=== PATIENT | male | born 1960 | race Caucasian/White ===

== ENCOUNTER 2017-02-15 08:49 | Emergency (ER) | payer OTHER ==
[~2017-02-15] VITALS: Ht 149.9 cm; Wt 56.7 kg
[~2017-02-15 08:49] MED LIST: ACETAMINOPHEN-1 EAC1 PO; ALENDRONATE; AMOXICILLIN 50500 M1 PO; APAP500 PO; ATORVASTATIN CA40 MG PO; CALCIUM; CALCIUM 500 +1 EAC5 PO; CALCIUM 500 WI1 EAC3 PO; CALCIUM OYSTER500 MG PO; CARISOPRODOL 3350 MG PO; CYMBALTA30 MG; CYMBALTA60 MG PO; ELAVIL PO; FOSAMAX 70 MG T70 M1; FOSAMAX 70 MG T70 M1 PO; FOSAMAX 70 MG T70 MG PO; HYDROCODON-ACE1 EAC5 PO; HYDROCODONE-AP1 EAC6 PO; KLOR-CON 1010 MEQ PO; LIPITOR; LIPITOR 40 MG T40 M1; LIPITOR40 MG; LIPITOR40 MG PO; MELATONIN3 MG PO; MOBIC7.5 MG PO; MS CONTIN 30 MG30 M1 PO; MS CONTIN30 MG; MS CONTIN30 MG PO; NAPROSYN500 MG PO; NITROGLYCERIN0.4 MG SUBLING; NOHOMEMEDICATIONS; NORCO 10-325 T1 EACH PO; NORCO 5-325 TA1 EAC1 PO; NORCO 5-325 TA1 EACH PO; OXYCODON-ACETA1 EAC1 PO; OXYCODONE HCL15 MG PO; OXYCONTIN CR 2020 MG PO; OXYCONTIN20 M1 PO; PERCOCET; PERCOCET 10-321 EACH; PERCOCET 10-321 EACH PO; PERCOCET 10-651 EACH PO; PERCOCET 5-3251 EACH; PERCOCET 5-3251 EACH PO; PERCOCET 7.5-31 EACH; PERCOCET 7.5-31 EACH PO; PERCOCET 7.5-51 EACH; PERCOCET PO; ROXICODONE15 M1 PO; TRAMADOL 50 MG50 MG PO; ULTRAM 50MG TAB50 MG PO; VALIUM5 MG; VICODIN 5-5001 EACH PO; VICODIN ES TAB1 EACH PO; VICODIN PO
[2017-02-15 08:58] VITALS: BP 141/89
[2017-02-15] MEDS ORDERED: PERCOCET 5-3251 EACH PO (09:50)
== END 2017-02-15 10:01 | disposition home or self-care (01) ==
LOC: ER 08:49
DX: R07.81 Pleurodynia (principal); Q78.0 Osteogenesis imperfecta; M81.0 Age-related osteoporosis without current pathological fracture; M41.9 Scoliosis, unspecified; E78.00 Pure hypercholesterolemia, unspecified; F17.210 Nicotine dependence, cigarettes, uncomplicated; I48.91 Unspecified atrial fibrillation; Z88.6 Allergy status to analgesic agent; Z88.8 Allergy status to other drugs, medicaments and biological substances

== ENCOUNTER 2017-02-21 08:06 | Emergency (ER) | payer OTHER ==
[~2017-02-21] VITALS: Ht 149.9 cm; Wt 56.7 kg
[2017-02-21] MEDS ORDERED: PERCOCET 5-3251 EACH PO (09:09)
[2017-02-21 09:30] VITALS: BP 142/71
[2017-02-25] MEDS ORDERED: PERCOCET 5-3251 EACH PO (14:33)
== END 2017-02-21 09:31 | disposition home or self-care (01) ==
LOC: ER 08:06
DX: S22.41XA Multiple fractures of ribs, right side, initial encounter for closed fracture (principal); E78.5 Hyperlipidemia, unspecified; G89.29 Other chronic pain; I48.91 Unspecified atrial fibrillation; Z88.6 Allergy status to analgesic agent; Z88.8 Allergy status to other drugs, medicaments and biological substances; F17.210 Nicotine dependence, cigarettes, uncomplicated; W01.0XXA Fall on same level from slipping, tripping and stumbling without subsequent striking against object, initial encounter; Y93.89 Activity, other specified; Y92.89 Other specified places as the place of occurrence of the external cause; Y99.8 Other external cause status

== ENCOUNTER 2017-03-06 15:19 | Emergency (ER) | payer OTHER ==
[~2017-03-06] VITALS: Ht 149.9 cm; Wt 56.7 kg
--- NOTE | ~2017-03-06 | EKG ---
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: saadia : 1960 Requested By: Denis Schrader Order Number: [id number] MD: Tray Matos Measurements Intervals [place] Rate: 75 P: 45 [place]: 154 QRS: 52 QRSD: 81 T: 107 QT: 369 QTc: 413 Interpretive Statements Sinus rhythm Multiple atrial premature complexes LVH with secondary repolarization abnormality Compared to ECG 03/03/2017 09:42:32 Atrial premature complex(es) now present Electronically Signed On 03-07-2017 7:52:11 CDT by Tray Matos [email or web address] <ELECTRONICALLY SIGNED> By: Tray Matos MD, [facility] 03/07/17 0752 31 31 Tray Matos MD, [facility] /EPI
[~2017-03-06 15:19] MED LIST changes: +LIDODERM 5%1 PATC1 TRANSDERM
[2017-03-06 15:20] VITALS: BP 136/67
[2017-03-06] MEDS ORDERED: VENTOLIN HFA 1818 GM INH (16:28)
[2017-03-06] MEDS ORDERED: LIDODERM 5%1 PATC1 TRANSDERM (16:28)
== END 2017-03-06 16:33 | disposition home or self-care (01) ==
LOC: ER 15:19
DX: S22.41XA Multiple fractures of ribs, right side, initial encounter for closed fracture (principal); Z87.81 Personal history of (healed) traumatic fracture; E78.5 Hyperlipidemia, unspecified; G89.29 Other chronic pain; I48.91 Unspecified atrial fibrillation; Z87.39 Personal history of other diseases of the musculoskeletal system and connective tissue; Z88.6 Allergy status to analgesic agent; Z88.8 Allergy status to other drugs, medicaments and biological substances; F17.210 Nicotine dependence, cigarettes, uncomplicated; X58.XXXA Exposure to other specified factors, initial encounter; Y93.89 Activity, other specified; Y92.89 Other specified places as the place of occurrence of the external cause; Y99.8 Other external cause status

== ENCOUNTER 2017-04-15 11:02 | Emergency (ER) | payer OTHER ==
[~2017-04-15] VITALS: Ht 149.9 cm; Wt 56.7 kg
[~2017-04-15 11:02] MED LIST changes: +VENTOLIN HFA 1818 GM INH
[2017-04-15 11:06] VITALS: BP 152/96
[2017-04-15] MEDS ORDERED: CYMBALTA30 MG PO (11:13)
[2017-04-15] MEDS ORDERED: LIDODERM 5%1 PATC1 TRANSDERM (12:06)
== END 2017-04-15 12:24 | disposition home or self-care (01) ==
LOC: ER 11:02
DX: S20.212A Contusion of left front wall of thorax, initial encounter (principal); G89.29 Other chronic pain; M54.5 Low back pain; Q78.0 Osteogenesis imperfecta; M81.0 Age-related osteoporosis without current pathological fracture; M41.9 Scoliosis, unspecified; E78.00 Pure hypercholesterolemia, unspecified; I48.91 Unspecified atrial fibrillation; F17.210 Nicotine dependence, cigarettes, uncomplicated; Z88.6 Allergy status to analgesic agent; Z88.8 Allergy status to other drugs, medicaments and biological substances; W18.30XA Fall on same level, unspecified, initial encounter; Y93.89 Activity, other specified; Y92.89 Other specified places as the place of occurrence of the external cause; Y99.9 Unspecified external cause status

== ENCOUNTER 2017-04-18 06:49 | Emergency (ER) | payer OTHER ==
[~2017-04-18] VITALS: Ht 149.9 cm; Wt 56.7 kg
--- NOTE | ~2017-04-18 | EKG ---
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 : 1960 Requested By: Monik Rodriguez Order Number: [id number] MD: Tray Matos Measurements Intervals [place] Rate: 76 P: 60 [place]: 145 QRS: 66 QRSD: 83 T: 80 QT: 378 QTc: 426 Interpretive Statements Sinus rhythm Abnormal R-wave progression, early transition LVH with secondary repolarization abnormality Baseline wander in lead(s) I,III,aVL Compared to ECG 03/06/2017 15:32:21 Atrial premature complex(es) no longer present Electronically Signed On 04-18-2017 7:57:12 CDT by Tray Matos [email or web address] <ELECTRONICALLY SIGNED> By: Tray Matos MD, [facility] 04/18/17 0757 0701 0701 Tray Matos MD, [facility] /EPI
[~2017-04-18 06:49] MED LIST changes: +CYMBALTA30 MG PO
[2017-04-18 07:32] LABS: ABSOLUTE NEUTROPHILS 4.5 thou/uL (1.4-8.2); BASOPHILS 0.7 % (0.0-2.0); EOSINOPHILS 0.8 % (0.0-3.0); HEMATOCRIT 39.2 % (42.0-52.0); HEMOGLOBIN 13.5 gm/dL (14.0-18.0); LYMPHOCYTES 32.8 % (24.0-44.0); MCH 32.2 pg (26.0-34.0); MCHC 34.4 g/dL (28.0-37.0); MCV 93.8 fL (80.0-100.0); MONOCYTES 6.2 % (1.0-8.0); PLATELET COUNT 246 thou/uL (150-400); POLYS 59.5 % (36.0-66.0); RBC 4.18 mil/uL (4.50-6.00); RDW 15.4 % (10.5-14.5); WBC 7.6 thou/uL (4.0-11.0)
[2017-04-18 07:33] LABS: MANUAL DIFF NO
[2017-04-18 07:41] LABS: ANION GAP 7 mmol/L (7-16); BUN 16 mg/dL (7-18); CALCIUM 8.3 mg/dL (8.5-10.1); CHLORIDE 105 mmol/L (98-107); CO2 27 mmol/L (21-32); CREATININE 0.8 mg/dL (0.7-1.3); GLUCOSE 122 mg/dL (74-106); POTASSIUM 3.2 mmol/L (3.5-5.1); SODIUM 139 mmol/L (136-145)
[2017-04-18 07:49] LABS: TROPONIN-I < 0.04 ng/mL (<0.04-0.07)
[2017-04-18 08:02] VITALS: BP 121/70
== END 2017-04-18 08:12 | disposition home or self-care (01) ==
LOC: ER 06:49
PROVIDERS: Emergency Medicine
DX: G89.29 Other chronic pain (principal); R07.9 Chest pain, unspecified; Q78.0 Osteogenesis imperfecta; M81.0 Age-related osteoporosis without current pathological fracture; M41.9 Scoliosis, unspecified; E78.00 Pure hypercholesterolemia, unspecified; I48.91 Unspecified atrial fibrillation; F17.210 Nicotine dependence, cigarettes, uncomplicated; Z88.8 Allergy status to other drugs, medicaments and biological substances; Z88.6 Allergy status to analgesic agent

== ENCOUNTER 2017-04-30 06:19 | Emergency (ER) | payer OTHER ==
[~2017-04-30] VITALS: Ht 149.9 cm; Wt 56.7 kg
[2017-04-30] MEDS ORDERED: PERCOCET PO (06:32)
[2017-04-30 07:00] VITALS: BP 133/68
== END 2017-04-30 07:02 | disposition home or self-care (01) ==
LOC: ER 06:19
DX: M25.561 Pain in right knee (principal); G89.29 Other chronic pain; E78.5 Hyperlipidemia, unspecified; I48.91 Unspecified atrial fibrillation; F17.210 Nicotine dependence, cigarettes, uncomplicated; F10.99 Alcohol use, unspecified with unspecified alcohol-induced disorder; Z88.6 Allergy status to analgesic agent; Z88.8 Allergy status to other drugs, medicaments and biological substances

== ENCOUNTER 2017-05-09 20:55 | Emergency (ER) | payer OTHER ==
[~2017-05-09] VITALS: Ht 149.9 cm; Wt 54.4 kg
[2017-05-09 22:05] VITALS: BP 126/70
== END 2017-05-09 22:05 | disposition home or self-care (01) ==
LOC: ER 20:55
DX: S22.32XA Fracture of one rib, left side, initial encounter for closed fracture (principal); R07.89 Other chest pain; M19.90 Unspecified osteoarthritis, unspecified site; E78.00 Pure hypercholesterolemia, unspecified; F17.210 Nicotine dependence, cigarettes, uncomplicated; I48.91 Unspecified atrial fibrillation; Z88.6 Allergy status to analgesic agent; Z88.8 Allergy status to other drugs, medicaments and biological substances; X58.XXXA Exposure to other specified factors, initial encounter; Y93.89 Activity, other specified; Y92.89 Other specified places as the place of occurrence of the external cause; Y99.8 Other external cause status

== ENCOUNTER 2017-06-25 19:30 | Emergency (ER) | payer OTHER ==
[~2017-06-25] VITALS: Ht 149.9 cm; Wt 54.4 kg
--- NOTE | ~2017-06-25 | EKG ---
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 : 1960 Requested By: Tato Phipps Order Number: [id number] MD: Tray Matos Measurements Intervals [place] Rate: 95 P: 71 [place]: 151 QRS: 75 QRSD: 77 T: 104 QT: 340 QTc: 428 Interpretive Statements Sinus tachycardia Multiple atrial premature complexes LVH with secondary repolarization abnormality Compared to ECG 04/18/2017 07:01:53 Atrial premature complex(es) now present Electronically Signed On 06-26-2017 18:21:12 CDT by Tray Matos [email or web address] <ELECTRONICALLY SIGNED> By: Tray Matos MD, [facility] 06/26/17 1821 34 34 Tray Matos MD, [facility] /EPI
[~2017-06-25 19:30] MED LIST changes: +ASPIR 8181 MG PO
[2017-06-25] MEDS ORDERED: PERCOCET 5-3251 EACH PO (21:25)
[2017-06-25 21:40] VITALS: BP 163/75
[2017-07-01] MEDS ORDERED: PERCOCET 5-3251 EACH PO (12:55)
== END 2017-06-25 21:45 | disposition home or self-care (01) ==
LOC: ER 19:30
DX: G89.29 Other chronic pain (principal); R07.9 Chest pain, unspecified; Q78.0 Osteogenesis imperfecta; E78.00 Pure hypercholesterolemia, unspecified; M41.9 Scoliosis, unspecified; M54.9 Dorsalgia, unspecified; I48.91 Unspecified atrial fibrillation; F17.210 Nicotine dependence, cigarettes, uncomplicated; Z76.5 Malingerer [conscious simulation]; Z88.6 Allergy status to analgesic agent

== ENCOUNTER 2017-07-07 18:35 | Emergency (ER) | payer OTHER ==
[~2017-07-07] VITALS: Ht 149.9 cm; Wt 54.4 kg
[2017-07-07 20:32] VITALS: BP 131/75
== END 2017-07-07 20:20 | disposition home or self-care (01) ==
LOC: ER 18:35
DX: G89.29 Other chronic pain (principal); R07.81 Pleurodynia; E78.00 Pure hypercholesterolemia, unspecified; M54.9 Dorsalgia, unspecified; I48.91 Unspecified atrial fibrillation; M41.9 Scoliosis, unspecified; Q78.0 Osteogenesis imperfecta; F17.210 Nicotine dependence, cigarettes, uncomplicated; Z88.6 Allergy status to analgesic agent

== ENCOUNTER 2019-07-18 15:32 | Emergency (ER) | payer OTHER ==
[~2019-07-18] VITALS: Ht 149.9 cm; Wt 54.4 kg
[~2019-07-18 15:32] MED LIST changes: +ACETAMINOPHEN-1 EAC2 PO; -ATORVASTATIN CA40 MG PO; +CYMBALTA20 MG PO; +FLEXERIL PO; +LIDODERM1 EACH TRANSDERM; +LIPITOR80 MG PO; +MOBIC15 MG PO; +ZANAFLEX2 MG PO
[2019-07-18] MEDS ORDERED: PERCOCET PO (15:38)
[2019-07-18] MEDS ORDERED: NORCO 7.5-3251 EACH PO (17:16)
[2019-07-18 17:22] VITALS: BP 177/71
== END 2019-07-18 17:25 | disposition home or self-care (01) ==
LOC: ER 15:32
DX: S20.222A Contusion of left back wall of thorax, initial encounter (principal); E78.00 Pure hypercholesterolemia, unspecified; M81.0 Age-related osteoporosis without current pathological fracture; M41.9 Scoliosis, unspecified; I48.91 Unspecified atrial fibrillation; M54.9 Dorsalgia, unspecified; G89.29 Other chronic pain; F17.210 Nicotine dependence, cigarettes, uncomplicated; Z86.73 Personal history of transient ischemic attack (TIA), and cerebral infarction without residual deficits; Z88.6 Allergy status to analgesic agent; Z88.8 Allergy status to other drugs, medicaments and biological substances; X58.XXXA Exposure to other specified factors, initial encounter; Y93.89 Activity, other specified; Y92.89 Other specified places as the place of occurrence of the external cause; Y99.8 Other external cause status

== ENCOUNTER 2019-12-25 21:43 | Emergency (ER) | payer OTHER ==
[~2019-12-25] VITALS: Ht 149.9 cm; Wt 54.4 kg
[~2019-12-25 21:43] MED LIST changes: +NORCO 7.5-3251 EACH PO; +PERCOCET 7.5-31 EAC1 PO
[2019-12-25 21:58] VITALS: BP 171/88
[2019-12-25] MEDS ORDERED: ASPERCREME1 EACH TOP (23:21)
== END 2019-12-25 23:35 | disposition home or self-care (01) ==
LOC: ER 21:43
DX: R07.89 Other chest pain (principal); I48.91 Unspecified atrial fibrillation; E78.00 Pure hypercholesterolemia, unspecified; M54.9 Dorsalgia, unspecified; M81.0 Age-related osteoporosis without current pathological fracture; M41.9 Scoliosis, unspecified; G89.29 Other chronic pain; Q78.0 Osteogenesis imperfecta; F17.210 Nicotine dependence, cigarettes, uncomplicated; Z86.73 Personal history of transient ischemic attack (TIA), and cerebral infarction without residual deficits; Z88.6 Allergy status to analgesic agent; Z88.8 Allergy status to other drugs, medicaments and biological substances

== ENCOUNTER 2020-01-23 16:26 | Emergency (ER) | payer OTHER ==
[~2020-01-23] VITALS: Ht 149.9 cm; Wt 54.4 kg
[~2020-01-23 16:26] MED LIST changes: +ASPERCREME1 EACH TOP
[2020-01-23] MEDS ORDERED: SALONPAS1 EACH TOP (18:45)
[2020-01-23 18:49] VITALS: BP 130/71
== END 2020-01-23 18:54 | disposition home or self-care (01) ==
LOC: ER 16:26
DX: R07.81 Pleurodynia (principal); M54.5 Low back pain; E78.00 Pure hypercholesterolemia, unspecified; M41.9 Scoliosis, unspecified; I48.91 Unspecified atrial fibrillation; G89.29 Other chronic pain; F17.210 Nicotine dependence, cigarettes, uncomplicated; Z86.73 Personal history of transient ischemic attack (TIA), and cerebral infarction without residual deficits; Z88.6 Allergy status to analgesic agent

== ENCOUNTER 2020-11-04 19:34 | Emergency (ER) | payer OTHER ==
[~2020-11-04] VITALS: Ht 149.9 cm; Wt 54.4 kg
[~2020-11-04 19:34] MED LIST changes: +LIDODERM1 EACH TOP; +SALONPAS1 EACH TOP
[2020-11-04] MEDS ORDERED: AUGMENTIN 875-1 EACH PO (22:08)
[2020-11-04] MEDS ORDERED: NORCO 10-325 T1 EACH PO (22:12)
[2020-11-04 22:28] VITALS: BP 138/65
== END 2020-11-04 22:29 | disposition home or self-care (01) ==
LOC: ER 19:34
DX: J18.9 Pneumonia, unspecified organism (principal); R07.89 Other chest pain; R07.81 Pleurodynia; F17.210 Nicotine dependence, cigarettes, uncomplicated; Z88.8 Allergy status to other drugs, medicaments and biological substances; E78.00 Pure hypercholesterolemia, unspecified; M81.0 Age-related osteoporosis without current pathological fracture; I48.91 Unspecified atrial fibrillation; Z86.73 Personal history of transient ischemic attack (TIA), and cerebral infarction without residual deficits; Z79.899 Other long term (current) drug therapy; Z79.82 Long term (current) use of aspirin

== ENCOUNTER 2021-08-24 18:25 | Emergency (ER) | payer OTHER ==
[~2021-08-24] VITALS: Ht 149.9 cm; Wt 54.4 kg
[~2021-08-24 18:25] MED LIST changes: +AUGMENTIN 875-1 EACH PO
[2021-08-24] MEDS ORDERED: DICLOFENAC SOD100 GM TOP (20:15)
[2021-08-24 20:29] VITALS: BP 163/71
== END 2021-08-24 20:30 | disposition home or self-care (01) ==
LOC: ER 18:25
DX: S20.212A Contusion of left front wall of thorax, initial encounter (principal); E78.00 Pure hypercholesterolemia, unspecified; M81.0 Age-related osteoporosis without current pathological fracture; I48.91 Unspecified atrial fibrillation; F17.210 Nicotine dependence, cigarettes, uncomplicated; Z79.82 Long term (current) use of aspirin; Z79.899 Other long term (current) drug therapy; Z88.6 Allergy status to analgesic agent; Z88.5 Allergy status to narcotic agent; W19.XXXA Unspecified fall, initial encounter; Y93.89 Activity, other specified; Y92.89 Other specified places as the place of occurrence of the external cause; Y99.8 Other external cause status